=== PATIENT | female | born 1955 | race Caucasian/White ===

== ENCOUNTER 2016-12-22 14:19 | Inpatient (IN) | payer MEDICAID ==
[~2016-12-22] VITALS: Ht 152.4 cm; Wt 46.8 kg
[2016-12-22] MEDS ORDERED: SODIUM CHLORIDE 0.9% 500 ML IVB ONE (14:30)
[2016-12-22] MEDS ORDERED: ONDANSETRON HCL 4 MG/2 ML VIAL IV ONE (14:30)
[2016-12-22] MEDS ORDERED: MORPHINE SULFATE 4 MG/ML SYRG IV ONE (14:30)
[2016-12-22 14:57] LABS: Basophils # (auto) 0.3 uL; Basophils % (auto) 2.5 % (0.0-2.0); DEFINITIVE VIEW TRANSMISSION; Eosinophils # (auto) 0.5 uL; Eosinophils % (auto) 4.4 % (0.0-7.0); Hematocrit 39.2 % (36.0-46.0); Hemoglobin 12.6 g/dL (12.2-16.2); Lymphocytes # (auto) 2.7 uL; Lymphocytes % (auto) 24.9 % (10.0-50.0); Mean Corpuscular Hemoglobin 26.5 pg (28.0-32.0); Mean Corpuscular Hgb Conc. 32.2 g/dL (32.0-36.0); Mean Corpuscular Volume 82.5 fL (80.0-100.0); Mean Platelet Volume 8.3 fL (7.4-10.4); Monocytes # (auto) 0.6 uL; Monocytes % (auto) 5.5 % (0.0-12.0); Neutrophils # (auto) 6.9 uL; Neutrophils % (auto) 62.7 % (37.0-80.0); Platelet Count (auto) 299 10^3/uL (140-450); Red Cell Distribution Width 13.5 % (11.6-16.0)
[2016-12-22 15:23] LABS: Albumin 3.5 g/dL (3.4-5.0); Calcium 8.2 mg/dL (8.5-10.1); Potassium 4.3 mmol/L (3.5-5.1)
[2016-12-22 15:26] LABS: BUN/Creatinine Ratio 18.5
[2016-12-22 15:28] LABS: Bilirubin, Total 0.4 mg/dL (0.2-1.0); Total Protein 6.8 g/dL (6.4-8.2)
[2016-12-22 15:33] LABS: Urine Bilirubin Negative (Negative); Urine Color Yellow (Yellow); Urine Glucose Normal (Normal); Urine Ketone Negative (Negative); Urine Mucus FEW (None Seen); Urine Nitrite Negative (Negative); Urine RBC 6 /hpf (0 - 4); Urine Squamous Epithelial Cell FEW /hpf (<5); Urine Urobilinogen Normal (Negative); Urine pH 6.5 (5.0-8.0)
[2016-12-22 15:38] LABS: Urine Blood 1+ /uL (Negative)
[2016-12-22] MEDS ORDERED: LORazepam 2MG/ML-1ML VIAL IV ONE (17:15)
[2016-12-22] MEDS ORDERED: ALBUTEROL SULF 2.5 MG/0.5ML(0.5%) NEB SOLN HHN STA (20:11)
[2016-12-22] MEDS ORDERED: IPRATROPIUM BROM 0.5 MG/2.5ML INH SOL NEB ONE (20:15)
[2016-12-22] MEDS ORDERED: LEVOFLOXACIN 500MG 100 ML IV ONE (21:45)
[2016-12-22] MEDS ORDERED: ONDANSETRON HCL 4 MG/2 ML VIAL IV PRN (21:45)
[2016-12-22] MEDS ORDERED: SODIUM CHLORIDE 0.9% 1,000 ML IV ONE (21:45)
[2016-12-22] MEDS ORDERED: LORazepam 0.5 MG TAB PO PRN (21:45)
[2016-12-22] MEDS ORDERED: PANTOPRAZOLE SODIUM 40 MG/10 ML VIAL IV ONE (21:45)
[2016-12-22 22:30] VITALS: BP 125/67
[2016-12-22] MEDS ORDERED: diphenhdrAMINE HCL 50 MG/1 ML VL IV ONE (22:30)
[2016-12-22] MEDS: IPRATROPIUM BROM 0.5 MG/2.5ML INH SOL NEB SCH (22:55)
[2016-12-23] MEDS: SUCRALFATE 1 GM TAB PO SCH ×5 (00:56→22:19)
[2016-12-23] MEDS: metroNIDAZOLE 500MG/100ML 100 ML IV SCH ×5 (00:56→23:39)
[2016-12-23] MEDS: ALBUTEROL SULF 2.5 MG/0.5ML(0.5%) NEB SOLN NEB PRN ×2 (02:51→22:19)
[2016-12-23] MEDS: IPRATROPIUM BROM 0.5 MG/2.5ML INH SOL NEB SCH ×5 (02:52→22:19)
[2016-12-23] MEDS ORDERED: SIME80CH6 PO (03:28)
[2016-12-23] MEDS ORDERED: FLUT0.0535 NAS (03:28)
[2016-12-23] MEDS ORDERED: PRA25T PO (03:28)
[2016-12-23] MEDS ORDERED: MULT1TAB95 PO (03:28)
[2016-12-23] MEDS ORDERED: LORA2TAB10 PO (03:28)
[2016-12-23] MEDS ORDERED: SOTA80TA PO (03:28)
[2016-12-23] MEDS ORDERED: SUCR1TAB PO (03:28)
[2016-12-23] MEDS ORDERED: METH5TAB77 PO (03:28)
[2016-12-23] MEDS ORDERED: IPRA0.03 (03:28)
[2016-12-23 05:00] VITALS: BP 99/46
[2016-12-23] MEDS: ACETAMINOPHEN 325 MG TAB PO PRN (06:13)
[2016-12-23 06:19] LABS: Basophils # (auto) 0.1 uL; Basophils % (auto) 0.8 % (0.0-2.0); Eosinophils # (auto) 0.5 uL; Eosinophils % (auto) 5.4 % (0.0-7.0); Hematocrit 38.3 % (36.0-46.0); Hemoglobin 12.4 g/dL (12.2-16.2); Lymphocytes # (auto) 2.8 uL; Lymphocytes % (auto) 33.7 % (10.0-50.0); Mean Corpuscular Hemoglobin 27.2 pg (28.0-32.0); Mean Corpuscular Hgb Conc. 32.5 g/dL (32.0-36.0); Mean Corpuscular Volume 83.6 fL (80.0-100.0); Mean Platelet Volume 8.6 fL (7.4-10.4); Monocytes # (auto) 0.6 uL; Monocytes % (auto) 7.2 % (0.0-12.0); Neutrophils # (auto) 4.5 uL; Neutrophils % (auto) 52.9 % (37.0-80.0); Platelet Count (auto) 276 10^3/uL (140-450); Red Cell Distribution Width 13.9 % (11.6-16.0); White Blood Cell 8.4 10^3/uL (4.4-10.8)
[2016-12-23 06:48] LABS: Potassium 4.3 mmol/L (3.5-5.1)
[2016-12-23 07:07] LABS: Albumin 3.3 g/dL (3.4-5.0); BUN/Creatinine Ratio 22.4; Calcium 8.3 mg/dL (8.5-10.1)
[2016-12-23 07:13] LABS: Bilirubin, Total 0.5 mg/dL (0.2-1.0); Total Protein 6.6 g/dL (6.4-8.2)
[2016-12-23 09:00] VITALS: BP 103/55
[2016-12-23] MEDS: SOTALOL HCL 80 MG TAB PO SCH (09:44)
[2016-12-23] MEDS: PANTOPRAZOLE SODIUM 40 MG/10 ML VIAL IV SCH (09:45)
[2016-12-23] MEDS: LEVOFLOXACIN 500MG 100 ML IV SCH (09:45)
[2016-12-23] MEDS: METHIMAZOLE 5 MG TAB PO SCH (09:45)
[2016-12-23] MEDS: ENOXAPARIN SOD 30 MG/0.3 ML SYRINGE SC SCH (09:46)
[2016-12-23 13:00] VITALS: BP 107/57
[2016-12-23 15:20] VITALS: BP 107/57
[2016-12-23 16:43] VITALS: BP 97/58
[2016-12-23] MEDS: BOOST PLUS 8 ounce PO SCH (17:20)
[2016-12-23] MEDS: DICYCLOMINE HCL 10 MG CAP PO SCH ×2 (17:53→22:19)
[2016-12-23] MEDS: LORazepam 2MG/ML-1ML VIAL IV PRN (17:53)
[2016-12-23 22:00] VITALS: BP 100/47
[2016-12-24] MEDS: LORazepam 2MG/ML-1ML VIAL IV PRN ×3 (00:03→22:56)
[2016-12-24] MEDS: IPRATROPIUM BROM 0.5 MG/2.5ML INH SOL NEB SCH ×6 (02:19→22:17)
[2016-12-24] MEDS: ALBUTEROL SULF 2.5 MG/0.5ML(0.5%) NEB SOLN NEB PRN (02:19)
[2016-12-24 05:30] VITALS: BP 112/61
[2016-12-24 06:04] LABS: Basophils # (auto) 0.4 uL; Basophils % (auto) 4.4 % (0.0-2.0); DEFINITIVE VIEW TRANSMISSION; Eosinophils # (auto) 0.5 uL; Eosinophils % (auto) 5.9 % (0.0-7.0); Hematocrit 36.6 % (36.0-46.0); Hemoglobin 11.9 g/dL (12.2-16.2); Lymphocytes # (auto) 2.7 uL; Lymphocytes % (auto) 32.1 % (10.0-50.0); Mean Corpuscular Hemoglobin 27.1 pg (28.0-32.0); Mean Corpuscular Hgb Conc. 32.4 g/dL (32.0-36.0); Mean Corpuscular Volume 83.6 fL (80.0-100.0); Mean Platelet Volume 8.5 fL (7.4-10.4); Monocytes # (auto) 0.5 uL; Monocytes % (auto) 6.4 % (0.0-12.0); Neutrophils # (auto) 4.2 uL; Neutrophils % (auto) 51.2 % (37.0-80.0); Platelet Count (auto) 275 10^3/uL (140-450); Red Cell Distribution Width 13.7 % (11.6-16.0); White Blood Cell 8.3 10^3/uL (4.4-10.8)
[2016-12-24] MEDS: ACETAMINOPHEN 325 MG TAB PO PRN ×2 (06:09→18:28)
[2016-12-24] MEDS: metroNIDAZOLE 500MG/100ML 100 ML IV SCH ×4 (06:09→23:48)
[2016-12-24] MEDS: DICYCLOMINE HCL 10 MG CAP PO SCH ×4 (06:09→21:30)
[2016-12-24] MEDS: SUCRALFATE 1 GM TAB PO SCH ×4 (06:09→21:30)
[2016-12-24 06:49] LABS: Potassium 4.5 mmol/L (3.5-5.1)
[2016-12-24 06:59] LABS: BUN/Creatinine Ratio 22.4; Calcium 8.2 mg/dL (8.5-10.1)
[2016-12-24 07:05] LABS: Bilirubin, Total 0.2 mg/dL (0.2-1.0); Total Protein 6.2 g/dL (6.4-8.2)
[2016-12-24] MEDS: BOOST PLUS 8 ounce PO SCH ×3 (08:36→17:55)
[2016-12-24 08:50] VITALS: BP 118/65
[2016-12-24] MEDS: METOCLOPRAMIDE HCL 10 MG TAB PO SCH ×3 (09:00→21:30)
[2016-12-24] MEDS: ENOXAPARIN SOD 30 MG/0.3 ML SYRINGE SC SCH (09:36)
[2016-12-24] MEDS: METHIMAZOLE 5 MG TAB PO SCH (09:37)
[2016-12-24] MEDS: SOTALOL HCL 80 MG TAB PO SCH (09:39)
[2016-12-24] MEDS ORDERED: DEXAMETHASONE INJECTION 10 MG in D5W 5% 50 ML IV SCH (10:00)
[2016-12-24] MEDS: LEVOFLOXACIN 500MG 100 ML IV SCH (10:00)
[2016-12-24] MEDS: PANTOPRAZOLE SODIUM 40 MG/10 ML VIAL IV SCH (10:00)
[2016-12-24 12:48] VITALS: BP 123/56
[2016-12-24] MEDS ORDERED: BISACODYL 10 MG RECT SUPP PR PRN (14:15)
[2016-12-24 16:19] VITALS: BP 107/67
[2016-12-24] MEDS: LORATADINE 10 MG TAB PO SCH (18:37)
[2016-12-24 20:00] VITALS: BP 115/60
[2016-12-24 23:19] VITALS: BP 115/60
[2016-12-25] MEDS: IPRATROPIUM BROM 0.5 MG/2.5ML INH SOL NEB SCH ×4 (02:47→14:29)
[2016-12-25] MEDS: metroNIDAZOLE 500MG/100ML 100 ML IV SCH (05:48)
[2016-12-25] MEDS: DICYCLOMINE HCL 10 MG CAP PO SCH (05:48)
[2016-12-25] MEDS: METOCLOPRAMIDE HCL 10 MG TAB PO SCH ×2 (05:48→05:55)
[2016-12-25 06:01] VITALS: BP 118/71
[2016-12-25 06:06] LABS: Basophils # (auto) 0.1 uL; Basophils % (auto) 1.2 % (0.0-2.0); DEFINITIVE VIEW TRANSMISSION; Eosinophils # (auto) 0.3 uL; Eosinophils % (auto) 2.7 % (0.0-7.0); Hematocrit 38.2 % (36.0-46.0); Hemoglobin 12.3 g/dL (12.2-16.2); Lymphocytes # (auto) 2.5 uL; Lymphocytes % (auto) 24.5 % (10.0-50.0); Mean Corpuscular Hemoglobin 26.8 pg (28.0-32.0); Mean Corpuscular Hgb Conc. 32.1 g/dL (32.0-36.0); Mean Corpuscular Volume 83.6 fL (80.0-100.0); Mean Platelet Volume 8.8 fL (7.4-10.4); Monocytes # (auto) 0.6 uL; Monocytes % (auto) 5.6 % (0.0-12.0); Neutrophils # (auto) 6.7 uL; Platelet Count (auto) 302 10^3/uL (140-450); Red Cell Distribution Width 13.7 % (11.6-16.0); White Blood Cell 10.2 10^3/uL (4.4-10.8)
[2016-12-25 06:13] LABS: Albumin 3.3 g/dL (3.4-5.0); BUN/Creatinine Ratio 17.5; Calcium 8.2 mg/dL (8.5-10.1); Potassium 4.3 mmol/L (3.5-5.1)
[2016-12-25 06:16] LABS: Bilirubin, Total 0.4 mg/dL (0.2-1.0); Total Protein 6.5 g/dL (6.4-8.2)
[2016-12-25] MEDS: SUCRALFATE 1 GM TAB PO SCH ×2 (06:26→11:27)
[2016-12-25 08:00] VITALS: BP 125/68
[2016-12-25] MEDS: BOOST PLUS 8 ounce PO SCH (08:00)
[2016-12-25 09:00] VITALS: BP 125/68
[2016-12-25] MEDS ORDERED: LORATADINE 10 MG TAB PO ONE (10:00)
[2016-12-25] MEDS: LEVOFLOXACIN 500MG 100 ML IV SCH (11:08)
[2016-12-25] MEDS: ENOXAPARIN SOD 30 MG/0.3 ML SYRINGE SC SCH (11:08)
[2016-12-25] MEDS: PANTOPRAZOLE SODIUM 40 MG/10 ML VIAL IV SCH (11:08)
[2016-12-25] MEDS: LORATADINE 10 MG TAB PO SCH (11:09)
[2016-12-25] MEDS: METHIMAZOLE 5 MG TAB PO SCH (11:09)
[2016-12-25] MEDS: SOTALOL HCL 80 MG TAB PO SCH (11:10)
[2016-12-25 13:00] VITALS: BP 132/74
[2016-12-25 13:37] VITALS: BP 125/68
== END 2016-12-25 19:43 | disposition home or self-care (01) | DRG 249 ==
LOC: EDBD 14:19 → ER 14:19 → OVERFLOW 14:20 → WEST WING 22:23
PROVIDERS: ADMIT Family Medicine; ATTEND Internal Medicine
DX: R19.7 Diarrhea, unspecified (principal); E44.0 Moderate protein-calorie malnutrition; N39.0 Urinary tract infection, site not specified; J44.9 Chronic obstructive pulmonary disease, unspecified; E86.0 Dehydration; E03.9 Hypothyroidism, unspecified; N18.9 Chronic kidney disease, unspecified; M81.0 Age-related osteoporosis without current pathological fracture; F41.9 Anxiety disorder, unspecified; G56.03 Carpal tunnel syndrome, bilateral upper limbs; K57.30 Diverticulosis of large intestine without perforation or abscess without bleeding; M19.90 Unspecified osteoarthritis, unspecified site; Z82.49 Family history of ischemic heart disease and other diseases of the circulatory system; Z82.5 Family history of asthma and other chronic lower respiratory diseases; Z83.3 Family history of diabetes mellitus; Z86.19 Personal history of other infectious and parasitic diseases; Z87.11 Personal history of peptic ulcer disease; Z88.0 Allergy status to penicillin; Z88.2 Allergy status to sulfonamides; Z68.20 Body mass index [BMI] 20.0-20.9, adult; J32.9 Chronic sinusitis, unspecified
CPT/HCPCS: 36415; 70450; 73564; 74176; 80053; 81001; 82150; 83690; 85025; 85652; 87040; 87086; 93005; 94640; 96361; 96374; 96375; C9113; J1100; J1956; J2405; J3490; J7060